=== PATIENT | female | born 1970 | race Caucasian/White ===

== ENCOUNTER 2021-11-01 20:33 | Emergency (ER) | payer OTHER, SELFPAY ==
[2021-11-01 20:33] VITALS: BP 120/86; PULSE 86; RESP 16; TEMP 37; O2SAT 100; BMI 23.7
[2021-11-01 21:14] LABS: Bacteria 0 SEEN /hpf (None Seen); Mucous, Urine 0 SEEN /hpf (<or=2+); Red Blood Cells-Urine 0 SEEN /hpf (0-5); Squamous Epithelial Cells - UA 0 SEEN /hpf (5-10); White Blood Cells 0 SEEN /hpf (0-5)
[2021-11-01 21:42] LABS: Color, Urine Yellow (Yellow); Internal QC Validated? YES +Cl - CLEAR BKGD; Pregnancy, Urine Negative Negative; Urine Clarity Clear (Clear)
[2021-11-01 21:43] LABS: Glucose, Dipstick Normal (Normal); Ketone-Dipstick Negative (Negative); Nitrite-Dipstick NEGATIVE (Negative); Protein-Dipstick Negative (Negative); Urine Bilirubin Dipstick Negative (Negative); Urine Urobilinogen Normal (Normal)
[2021-11-01 21:44] LABS: Leukocyte Esterase-Dipstick NEGATIVE /ul (Negative); Occult Blood-Urine Negative /ul (Negative)
--- NOTE | 2021-11-01 21:52 | EDS_ITS ---
HPI HPI - Female History of Present Illness Chief Complaint: Complaint Narrative Narrative: Patient presenting with dysuria and painful urination. Patient states this is been a problem for about a week. She was initially on nitrofurantoin which did not help at all. She is seen in urgent care on Wednesday and had a urinalysis performed. Patient was placed on Bactrim. She states her symptoms started to improve but then slowly got worse. She describes painful urination. Patient denies any systemic signs or symptoms. Patient states her urine culture was negative. PFSH PFSH Medical History Migraines Smoker Social History Smoking Status: Current every day smoker tobacco type: e-cigarettes ROS ROS ED Constitutional Constitutional ED: Denies chills or fever(s) Eyes Eyes: Denies blurry vision or change in vision ENT ENT ED: Denies rhinorrhea or sore throat Cardiovascular Cardiovascular: Denies chest pain or palpitations Respiratory/Chest Respiratory/Chest: Denies cough or dyspnea Gastrointestinal Gastrointestinal: Denies abdominal pain, diarrhea, nausea or vomiting Genitourinary Genitourinary ED: Reports dysuria Musculoskeletal Musculoskeletal: Denies arthralgias or myalgias Integumentary Denies abscess or rash Neurologic Neurologic: Denies headache(s) Psychiatric Psychiatric: Denies anxiety or depression EXAM Physical Exam Const Vital Signs: 11/01/21 20:33 Temperature 98.6 F Temperature Source Temporal Pulse Rate 86 Respiratory Rate 16 Blood Pressure 120/86 H Blood Pressure Mean 97 Pulse Ox 100 Oxygen Delivery Method Room Air Positive well nourished General Appearance ED: NAD; Negative for pallor HEENT Reports moist mucous membranes Negative for trauma Eyes PERRL and EOMs intact bilaterally Resp normal respiratory effort and clear to auscultation bilaterally Cardio regular rate and regular rhythm GI normal to inspection, nondistended, normoactive bowel sounds Extremity normal to inspection; Negative for full ROM General Extremety ED: Negative for edema General Extremity: Negative for edema Neuro oriented x3 and CN's II-XII intact bilaterally Sensorium / Orientation: alert Psych mental status grossly normal Skin no rashes or lesions noted General Skin Exam: Negative for jaundice or pallor MDM MDM MDM Narrative Medical decision making narrative: Urinalysis today is negative for infection, occult blood, ketones. Patient still expressing that she is having dysuria. Because her urinalysis was normal I did obtain a bladder scan which did show greater than 400 cc within the bladder. I did offer the patient a Prado catheter to help her relieve some of the symptoms if she is having urinary obstruction however she immediately got up and went to the bathroom to void. She states she does not want a Prado catheter. I will give her follow-up with urology. I will place her on Pyridium. Patient is given return precautions. Impression: 1. Dysuria Lab Data Attestation: I reviewed the patient's lab results. Labs: Laboratory Results - last 24 hr 11/01/21 20:45 Urine Color Yellow Urine Clarity Clear Urine pH 6.0 Ur Specific [place] 1.010 Urine Protein Negative Urine Glucose (UA) Normal Urine Ketones Negative Urine Occult Blood Negative Urine Nitrite NEGATIVE Urine Bilirubin Negative Urine Urobilinogen Normal Ur Leukocyte Esterase NEGATIVE Urine RBC 0 SEEN Urine WBC 0 SEEN Ur Squamous Epith Cells 0 SEEN Urine Bacteria 0 SEEN Urine Mucus 0 SEEN Urine Test Negative Discharge Plan Triage Chief Complaint: Complaint ED Provider: Adama Gudino Dx/Rx/DC Orders Primary Care Provider: Care Physician,No Primary Referrals: Care Physician,No Primary [Primary Care Provider] -
[2021-11-02] MEDS: Phenazopyridine 95 MG Tablet 190 MG PO (00:12)
[2021-11-02 00:34] VITALS: BP 134/75; PULSE 75; RESP 16; O2SAT 97
== END 2021-11-02 00:32 | disposition home or self-care (01) ==
PROVIDERS: Emergency Provider Student in an Organized Health Care Education/Training Program; Visit Provider Student in an Organized Health Care Education/Training Program
DX: R30.0 Dysuria (principal); F17.290 Nicotine dependence, other tobacco product, uncomplicated
CPT/HCPCS: 81001; 81025; 99283

== ENCOUNTER → 2021-11-04 | Outpatient (CLI) | payer OTHER, SELFPAY ==
--- NOTE | 2021-11-04 14:24 | CT_ITS ---
STUDY: CT ABDOMEN AND PELVIS WITHOUT CONTRAST REASON FOR EXAM: Female, 51 years old. Elevated BUN/creatinine RADIATION DOSAGE (If Supplied By Facility): CTDIvol = ( 8.56 ) mGy, DLP = ( 390.78 ) mGycm TECHNIQUE: Transaxial images were obtained from the dome of the diaphragm to the symphysis pubis without oral contrast, and without intravenous contrast. Sagittal and coronal images were reconstructed. Individualized dose optimization techniques were used for this CT. COMPARISON: None. FINDINGS: The visualized lung bases are unremarkable. The visualized portions of the heart are within normal limits. Normal liver. Normal gallbladder and extrahepatic biliary system. There is mild splenomegaly. Normal pancreas. Normal bilateral adrenal glands. No obstructive uropathy, or suspicious solid renal lesion, there are punctate nonobstructing bilateral renal stones. Normal visualized stomach. Normal small intestine. Normal colon. There is non-visualization of the appendix. Normal abdominal aorta. Normal inferior vena cava. Normal retroperitoneum. Normal urinary bladder. Normal-appearing uterus. There is 2.3 cm cyst in the right hemipelvis likely ovarian in origin, given patient''s age, a dedicated pelvic ultrasound would be recommended for further evaluation. No demonstrated free fluid Normal abdominal wall. Normal osseous structures. CT/Abdomen/Pelvis without Cont IMPRESSION: No objective uropathy or suspicious solid renal lesion, there are punctate nonobstructing renal stones. No free peritoneal fluid, air, or suspicious adenopathy Mild splenomegaly 2.3 cm right pelvic cyst, likely ovarian in origin, dedicated pelvic ultrasound recommended for further evaluation Electronically Signed: Lloyd Jessica MD at 14:49 EDT ,
== END | disposition home or self-care (01) ==
PROVIDERS: Referring Provider Urology; Visit Provider Urology
DX: R33.8 Other retention of urine (principal)
CPT/HCPCS: 74176